=== PATIENT | male | born 2000 | race Caucasian/White ===

== ENCOUNTER 2020-09-16 06:04 | Emergency (ER) | payer OTHER, SELFPAY ==
[2020-09-16 06:05] VITALS: BP 142/82; PULSE 89; RESP 20; TEMP 36.1; O2SAT 100; BMI 30.4
--- NOTE | 2020-09-16 06:15 | EKG12_ITS ---
Test Reason : CP Blood Pressure : / mmHG Vent. Rate : 076 BPM Atrial Rate : 076 BPM P-R Int : 166 ms QRS Dur : 112 ms QT Int : 370 ms P-R-T Axes : 047 073 041 degrees QTc Int : 416 ms Normal sinus rhythm Incomplete right bundle branch block Borderline ECG Confirmed by MENDEL BROWN, ROSA ([id number]), business editor CHUCKIE FRANCISCO ([id number]) on 09/18/2020 10:04:39 AM Referred By: CAMMIE Confirmed By:ROSA OGLESBY MD
--- NOTE | 2020-09-16 06:16 | EDS_ITS ---
HPI <Dr. Lorenzo Elias DO - Last Filed: 09/16/20 06:20> History of Present Illness Chief Complaint: Chest Pain Informant: patient Narrative Narrative: Patient here with mother evaluation persistent chest heaviness for the past week however symptoms worsened this morning. States tightness in his chest and throat. Has been dealing with sinus congestion for the past week. He states he has been dealing with the symptoms until worsening this morning. Mother states gave 2 Benadryl's. He does report increasing dyspnea with exertion. No arm pain no nausea no diaphoresis. Did return from [place] 3 weeks ago 10-hour car ride each way. Denied any leg cramping or swelling. No history of PE or DVT. He states he smokes cigar once a month. Family history grandmother [place] in the 60s, reports paternal grandfather [place] at the age of 35. P atient denies any recent fever cough or illness. He denies any current cough. Prior Similar Symptoms: No PE Risk Factors: Positive for Recent Travel/Surgery [facility] <Dr. Lorenzo Elias DO - Last Filed: 09/16/20 06:20> [facility] Medical History History of fracture of clavicle Home Medications NK 09/16/20 [History Last Taken Unknown] Allergy/AdvReac Type Severity Reaction Status Date / Time No Known Allergies Allergy Verified 09/16/20 06:05 Surgical History History of thumb surgery Social History Smoking Status: Never smoker ROS <Dr. Lorenzo Elias DO - Last Filed: 09/16/20 06:20> ROS ED Constitutional Constitutional ED: Denies chills, fever(s) or sweats Eyes Eyes: Denies change in vision ENT ENT ED: Denies dysphagia or sore throat Cardiovascular Cardiovascular: Reports chest pain; Denies leg edema, palpitations or racing heartbeat Respiratory/Chest Respiratory/Chest: Denies cough, dyspnea or dyspnea on exertion Gastrointestinal Gastrointestinal: Denies abdominal pain, diarrhea, nausea or vomiting Genitourinary Genitourinary ED: Denies dysuria, hematuria or urinary frequency Musculoskeletal Musculoskeletal: Denies back pain, extremity pain or neck pain Integumentary Denies rash or wounds Neurologic Neurologic: Denies headache(s), paresthesias or weakness EXAM <Dr. Lorenzo Elias, DO - Last Filed: 09/16/20 06:20> Physical Exam Const Vital Signs: 09/16/20 06:05 09/16/20 06:11 09/16/20 06:20 Temperature 96.9 F L Temperature Source Temporal Pulse Rate 89 Respiratory Rate 20 H Respiratory Effort Normal Respiratory Pattern Normal Blood Pressure 142/82 H Blood Pressure Mean 102 Pulse Ox 100 98 Oxygen Delivery Method Room Air Room Air 09/16/20 09:24 Temperature Temperature Source Pulse Rate 82 Respiratory Rate 15 Respiratory Effort Respiratory Pattern Blood Pressure 104/82 H Blood Pressure Mean Pulse Ox 99 Oxygen Delivery Method Positive well nourished and well developed Constitutional Narrative: Patient occasionally take a deep breath during exam. No respiratory distress. General Appearance ED: well developed and NAD HEENT Reports moist mucous membranes normocephalic and atraumatic Eyes PERRL, EOMs intact bilaterally and conjunctivae normal General Eye ED: Yes normal appearance of both eyes Neck no lymphadenopathy and supple General: Negative for tenderness Chest Wall Chest: Negative for tenderness Resp normal respiratory effort and normal air movement Effort and Inspection: symmetric chest movement; Negative for respiratory distress Cardio regular rate, regular rhythm and no murmurs Peripheral Pulses: pulses 2+ throughout GI normal to inspection, nondistended, normoactive bowel sounds and non-tender Palpation: Negative for guarding or rebound tenderness present Back/Spine no CVA tenderness and no thoracic nor lumbar tenderness Extremity normal to inspection General Extremety ED: Negative for edema or tenderness General Extremity: Negative for edema Neuro oriented x3 and no sensory deficits noted Sensorium / Orientation: awake and alert Skin no rashes or lesions noted and no wounds <Dr. Richard Aden, DO - Last Filed: 09/16/20 12:33> Physical Exam Const Vital Signs: 09/16/20 06:05 09/16/20 06:11 09/16/20 06:20 Temperature 96.9 F L Temperature Source Temporal Pulse Rate 89 Respiratory Rate 20 H Respiratory Effort Normal Respiratory Pattern Normal Blood Pressure 142/82 H Blood Pressure Mean 102 Pulse Ox 100 98 Oxygen Delivery Method Room Air Room Air 09/16/20 09:24 Temperature Temperature Source Pulse Rate 82 Respiratory Rate 15 Respiratory Effort Respiratory Pattern Blood Pressure 104/82 H Blood Pressure Mean Pulse Ox 99 Oxygen Delivery Method [facility] <Dr. Lorenzo Elias, DO - Last Filed: 09/16/20 06:20> [facility] Lab Data Labs: Laboratory Results - last 24 hr 09/16/20 09/16/20 09/16/20 06:10 06:10 06:10 WBC 10.5 RBC 5.29 Hgb 15.0 Hct 43.5 MCV 82.2 MCH 28.4 MCHC 34.5 RDW Std Deviation 36.8 RDW Coeff of García 12.2 Plt Count 275 MPV 10.0 Immature Gran % (Auto) 0.200 Neut % (Auto) 60.2 Lymph % (Auto) 30.8 [place] % (Auto) 7.0 Eos % (Auto) 1.4 Baso % (Auto) 0.4 Absolute Neuts (auto) 6.3 Absolute Lymphs (auto) 3.23 Nucleated RBC % 0 D-Dimer Quant (PE/DVT) <= 0.27 Sodium 139 Potassium 3.7 Chloride 107 Carbon Dioxide 27.0 Anion Gap 5 BUN 33 H Creatinine 1.23 Estim Creat Clear Calc 124.85 Est GFR (MDRD) Af Amer 94 Est GFR (MDRD) Non-Af 78 BUN/Creatinine Ratio 26.8 H Glucose 91 Calcium 9.2 Troponin I High Sens 3.4 09/16/20 08:19 WBC RBC Hgb Hct MCV MCH MCHC RDW Std Deviation RDW Coeff of García Plt Count MPV Immature Gran % (Auto) Neut % (Auto) Lymph % (Auto) [place] % (Auto) Eos % (Auto) Baso % (Auto) Absolute Neuts (auto) Absolute Lymphs (auto) Nucleated RBC % D-Dimer Quant (PE/DVT) Sodium Potassium Chloride Carbon Dioxide Anion Gap BUN Creatinine Estim Creat Clear Calc Est GFR (MDRD) Af Amer Est GFR (MDRD) Non-Af BUN/Creatinine Ratio Glucose Calcium Troponin I High Sens 5.2 Radiography Diagnostic Testing: Radiology Impression Chest X-Ray 09/16/20 07:10 IMPRESSION: Negative chest radiograph. Electronically Signed: Urban Conroy MD at 8:04 EDT Tel , Service support , EKG Initial EKG: Attestation: I personally reviewed and interpreted this EKG as follows: Comments: Sinus rate of 76, no ST changes. T wave flattening in leads III. Nonspecific. <Dr. Richard Aden, DO - Last Filed: 09/16/20 12:33> [facility] Lab Data Labs: Laboratory Results - last 24 hr 09/16/20 09/16/20 09/16/20 06:10 06:10 06:10 WBC 10.5 RBC 5.29 Hgb 15.0 Hct 43.5 MCV 82.2 MCH 28.4 MCHC 34.5 RDW Std Deviation 36.8 RDW Coeff of García 12.2 Plt Count 275 MPV 10.0 Immature Gran % (Auto) 0.200 Neut % (Auto) 60.2 Lymph % (Auto) 30.8 [place] % (Auto) 7.0 Eos % (Auto) 1.4 Baso % (Auto) 0.4 Absolute Neuts (auto) 6.3 Absolute Lymphs (auto) 3.23 Nucleated RBC % 0 D-Dimer Quant (PE/DVT) <= 0.27 Sodium 139 Potassium 3.7 Chloride 107 Carbon Dioxide 27.0 Anion Gap 5 BUN 33 H Creatinine 1.23 Estim Creat Clear Calc 124.85 Est GFR (MDRD) Af Amer 94 Est GFR (MDRD) Non-Af 78 BUN/Creatinine Ratio 26.8 H Glucose 91 Calcium 9.2 Troponin I High Sens 3.4 09/16/20 08:19 WBC RBC Hgb Hct MCV MCH MCHC RDW Std Deviation RDW Coeff of García Plt Count MPV Immature Gran % (Auto) Neut % (Auto) Lymph % (Auto) [place] % (Auto) Eos % (Auto) Baso % (Auto) Absolute Neuts (auto) Absolute Lymphs (auto) Nucleated RBC % D-Dimer Quant (PE/DVT) Sodium Potassium Chloride Carbon Dioxide Anion Gap BUN Creatinine Estim Creat Clear Calc Est GFR (MDRD) Af Amer Est GFR (MDRD) Non-Af BUN/Creatinine Ratio Glucose Calcium Troponin I High Sens 5.2 Radiography Diagnostic Testing: Radiology Impression Chest X-Ray 09/16/20 07:10 IMPRESSION: Negative chest radiograph. Electronically Signed: Urban Conroy MD at 8:04 EDT Tel , Service support , Discharge Plan Triage Chief Complaint: Chest Pain ED Provider: Richard Aden Dx/Rx/DC Orders Instructions: ED Chest Pain, Noncardiac Prescriptions: No Action NK RF: 0 Primary Care Provider: Rigoberto Quick III Referrals: Rigoberto Quick III, MD [Primary Care Provider] - Disposition Disposition: Home, Self Care Discharge Date/Time: 09/16/20 09:26
[2020-09-16 06:20] VITALS: O2SAT 98
[2020-09-16 06:25] LABS: Absolute Lymphocyte Count 3.23 X10^3/uL (0.83-4.51); Absolute Neutrophil Count 6.3 X10^3/uL (2.0-7.7); Basophil# 0.04 X10^3/uL; Basophil% 0.4 % (0-1); Eosinophil# 0.15 X10^3/uL; Eosinophils% 1.4 % (0-5); Hematocrit 43.5 % (40-54); Lymphocyte # 3.23 X10^3/ul (0.83-4.51); Lymphocyte % 30.8 % (19-41); Mean Corp Hgb Conc 34.5 g/dL (32-36); Mean Corpuscular Hgb 28.4 pg (27.0-32.0); Mean Corpuscular Volume 82.2 fL (80-94); Monocyte# 0.73 X10^3/uL; NRBC Flagged by Analyzer 0 % (0-5); Neutrophil # 6.31 X10^3/uL (2.7-7.7); Neutrophil % 60.2 % (47-70); Platelet Count 275 K/mm3 (150-450); RBC Distribution Width CV 12.2 % (11.6-14.6); RBC Distribution Width SD 36.8 fl (35.1-43.9); Red Blood Count 5.29 M/mm3 (4.6-6.2); White Blood Count 10.5 K/mm3 (4.4-11.0)
[2020-09-16 06:41] LABS: D-Dimer Quantitative (DVT/PE) <= 0.27 FEU/ug/m (0.27-0.49)
--- NOTE | 2020-09-16 07:10 | RAD_ITS ---
STUDY: X-RAY CHEST REASON FOR EXAM: Male, 20 years old. Chest pain. TECHNIQUE: PA and lateral COMPARISON: None. FINDINGS: No apparent pneumothorax, pneumonia, pleural effusion, or edema. Cardiac silhouette, sanjeev and mediastinal contours are within normal limits. No acute osseous abnormality. No evidence of free air under the diaphragm. RAD/Chest PA and Lateral IMPRESSION: Negative chest radiograph. Electronically Signed: Urban Conroy MD at 8:04 EDT Tel , Service support ,
[2020-09-16 08:02] LABS: Anion Gap 5 (5-15); BUN 33 mg/dL (7-18); BUN/Creat Ratio 26.8 RATIO (10-20); Calcium,Total 9.2 mg/dL (8.5-10.1); Chloride 107 mmol/L (98-107); Creatinine, Serum 1.23 mg/dL (0.70-1.30); EST Glomerular Filtration Rate 78 mL/min (>60); Est Glom Filt Rate - Afr Amer 94 mL/min (>60); Estimated Creatinine Clearance 124.85 ml/min; Glucose 91 mg/dL (74-106); Potassium 3.7 mmol/L (3.5-5.1); Sodium Level 139 mmol/L (136-145); Troponin-I HS 3.4 pg/mL (3.0-78.5)
[2020-09-16 08:42] LABS: Troponin-I HS 5.2 pg/mL (3.0-78.5)
[2020-09-16 09:24] VITALS: BP 104/82; PULSE 82; RESP 15; O2SAT 99
== END 2020-09-16 09:26 | disposition home or self-care (01) ==
PROVIDERS: Emergency Medicine; Emergency Provider Student in an Organized Health Care Education/Training Program; PCP Family Medicine
DX: R07.89 Other chest pain (principal)
CPT/HCPCS: 71046; 80048; 84484; 85025; 85379; 93005; 99284; A4216